=== PATIENT | male | born 1940 | race Caucasian/White ===

== ENCOUNTER 2016-07-07 | Emergency (ER) | payer MEDICARE, OTHER ==
[2016-07-08 00:04] LABS: HEMOGLOBIN 12.8 gm/dl (14.0-17.5); RED BLOOD COUNT 3.92 M/UL (4.20-5.50); WHITE BLOOD COUNT 11.5 K/UL (4.5-11.0)
== END 2016-07-08 04:30 | disposition home or self-care (01) ==
PROVIDERS: Student in an Organized Health Care Education/Training Program
DX: R11.2 Nausea with vomiting, unspecified (principal); R42 Dizziness and giddiness; I10 Essential (primary) hypertension; E03.9 Hypothyroidism, unspecified; Z87.891 Personal history of nicotine dependence; Z79.899 Other long term (current) drug therapy
CPT/HCPCS: 36415; 70450; 71010; 80053; 81001; 82550; 82553; 83874; 84443; 84484; 85025; 87086; 93005; 96361; 96374; 99284; J2405

== ENCOUNTER → 2021-07-18 | Outpatient (CLI) | payer OTHER | LOC: RAD 11:27 | DX: M25.511 Pain in right shoulder (principal); M19.011 Primary osteoarthritis, right shoulder | CPT/HCPCS: 73030 ==